=== PATIENT | female | born 1990 | race Caucasian/White ===

== ENCOUNTER 2021-09-28 14:15 | Emergency (ER) | payer SELFPAY ==
[~2021-09-28] VITALS: Ht 152.4 cm; Wt 52.2 kg
[2021-09-28 14:53] LABS: HEMATOCRIT 43.5 % (31.2-41.9); MEAN CORPUSCULAR VOLUME 94.3 fL (75.5-95.3); PLATELET COUNT (AUTO) 327 K/uL (179-408)
[2021-09-28] MEDS ORDERED: ACETAMINOPHEN 325 MG TABLET PO ONE (15:00)
[2021-09-28] MEDS ORDERED: FAMOTIDINE 20 MG TABLET PO ONE (15:00)
[2021-09-28 15:01] LABS: CREATININE 0.7 mg/dL (0.6-1.3); POTASSIUM 3.6 mmol/L (3.5-5.1)
[2021-09-28] MEDS ORDERED: FAMOTIDINE 20 MG TABLET ONE (15:06)
[2021-09-28] MEDS ORDERED: ACETAMINOPHEN 325 MG TABLET ONE (15:06)
[2021-09-28 15:14] LABS: BILIRUBIN,TOTAL 0.3 mg/dL (0.2-1.0); TOTAL PROTEIN, SERUM 8.1 g/dL (6.4-8.2)
[2021-09-28] MEDS ORDERED: HALOPERIDOL LACTATE 5 MG/1 ML VIAL IM ONE (15:30)
[2021-09-28] MEDS ORDERED: IBUPROFEN 400 MG TABLET PO ONE (16:15)
[2021-09-28] MEDS ORDERED: IBUPROFEN 400 MG TABLET ONE (16:51)
[2021-09-28 18:46] VITALS: BP 123/78
--- NOTE | 2021-09-28 18:46 | NUR ---
Patient discharged to home in stable condition. Written and verbal after care instructions given. Patient verbalizes understanding of instructions. Stressed follow up or return to ER for worsening s/s.
== END 2021-09-28 18:47 | disposition home or self-care (01) ==
LOC: ER 14:15
DX: R07.89 Other chest pain (principal)
CPT/HCPCS: 36415; 70030-TC; 71045; 85025; 93005; A4663